=== PATIENT | male | born 1975 | race Caucasian/White ===

== ENCOUNTER 2016-10-09 12:55 | Emergency (ER) | payer MEDICAID, OTHER ==
[~2016-10-09 12:55] MED LIST: CYCL-36 PO; HYDR-3111 PO; IBUP600 PO; ZOFR4TAB3 SL
[2016-10-09 12:57] VITALS: BP 134/85; PULSE 88; RESP 16; TEMP 97.7; O2SAT 99
== END 2016-10-09 13:16 | disposition left against medical advice (07) ==
LOC: NED 12:55
DX: R56.9 Unspecified convulsions (principal)
CPT/HCPCS: 99281